=== PATIENT | male | born 1945 | race Caucasian/White ===

== ENCOUNTER 2018-10-12 05:42 | Inpatient (IN) | payer OTHER ==
[2018-10-12] MEDS ORDERED: TRANEXAMIC ACID 1,000 MG in NS 100 ML IV ONE (06:00)
[2018-10-12] MEDS ORDERED: GABAPENTIN 300 MG CAP PO ONE (06:01)
[2018-10-12] MEDS ORDERED: morphINE PF 0.2 MG in SYRINGE INTRATHECAL 1 SYR IT ONE (06:01)
[2018-10-12] MEDS ORDERED: fentaNYL 50 MCG in SYRINGE INTRATHECAL 1 SYR IT ONE (06:01)
[2018-10-12] MEDS ORDERED: ceFAZolin 2 GM/DEXTROSE 100 ML IV ONE (06:01)
[2018-10-12] MEDS ORDERED: ACETAMINOPHEN 500 MG TAB PO ONE (06:01)
[2018-10-12] MEDS ORDERED: LR 1,000 ML IV ONE (06:04)
[2018-10-12] MEDS ORDERED: CHLORHEXIDINE GLUC HIBICLENS 118 ML BTL TP ONE (06:40)
[2018-10-12] MEDS ORDERED: BUPIVACAINE 0.25% 30 ML SDV ONE (06:40)
[2018-10-12] MEDS ORDERED: THROMBIN (BOVINE) 20,000 UNIT VIAL TP ONE ×2 (06:40→08:30)
[2018-10-12] MEDS ORDERED: BUPIVACAINE/EPI 0.25% 30 ML SDV ONE (06:41)
[2018-10-12] MEDS ORDERED: BACITRACIN 50,000 UNITS/10 ML SYR IRR ONE (06:41)
[2018-10-12] MEDS ORDERED: CITRATE DEXTROSE SOLN 500 ML BAG ONE (06:41)
[2018-10-12 06:53] LABS: PLATELET COUNT 231 10^3/uL (150-400)
[2018-10-12] MEDS ORDERED: MIDAZOLAM 2 MG/2 ML VIAL IVP ONE (07:01)
--- NOTE | 2018-10-12 07:01 | PDANEPAE ---
ANE History of Present Illness L4-S1 Lum Adam posterior fusion for chronic back pain and cord compression ANE Past Medical History - Cardiovascular History Hx Hypertension: No Hx Arrhythmias: No Hx Chest Pain: No Hx Coronary Artery / Peripheral Vascular Disease: No Hx CHF / Valvular Disease: No Hx Palpitations: No - Pulmonary History Hx COPD: No Hx Asthma/Reactive Airway Disease: No Hx Recent Upper Respiratory Infection: No Hx Oxygen in Use at Home: No Hx Sleep Apnea: No Sleep Apnea Screening Result - Last Documented: Negative Pulmonary History Comment: uses allergy medications for seasonal allergies - Neurologic History Hx Cerebrovascular Accident: No Hx Seizures: No Hx Dementia: No Neurologic History Comment: hx of 2 back surgeries. left foot and calf numbness and tingling last 3 toes - Endocrine History Hx Diabetes: No - Renal History Hx Renal Disorders: Yes Renal History Comment: hx of prostatitis. BPH - Liver History Hx Hepatic Disorders: No - Neurological & Psychiatric Hx Hx Neurological and Psychiatric Disorders: No - Cancer History Hx Cancer: No - Congenital Disorder History Hx Congenital Disorders: No - GI History Hx Gastrointestinal Disorders: Yes Gastrointestinal History Comment: reflux- uses omeprazole. hx of colonoscopy - Other Health History Other Health History: bruises easily d/t nsaids - Chronic Pain History Chronic Pain: Yes (back pain) - Surgical History Prior Surgeries: R FOOT ACHILLES REPAIR 02/2018. left knee scope 10/22/2014. 2 back surgeries. hemmorhoidectomy. tonsillectomy and throat surgery. left acl 10 years ago ANE Review of Systems Review of Systems: - Exercise capacity METS (RN): 4 METS ANE Patient History - Allergies Allergies/Adverse Reactions: ciprofloxacin [From Cipro] Allergy (Verified 09/28/18 11:37) Achilles Tendon Tear levofloxacin Allergy (Verified 09/28/18 11:37) Achilles Tendon Tear - Home Medications Home Medications: Fluticasone Nasal [Flonase Nasal Kenney] 2 sprays NASAL DAILY 01/04/15 [Last Taken 01/18/15] Gabapentin [Neurontin 300 MG (*)] 300 mg PO TID 01/04/15 [Last Taken 01/18/15 20 :00] Multivitamins [Multivitamin (*)] 1 each PO DAILY 01/04/15 [Last Taken 01/12/15] Omeprazole [Prilosec] 40 mg PO Q2D 01/04/15 [Last Taken 01/19/15] HYDROcodone/APAP 10/325 [Potter 10/325 (*)] 1 tab PO Q6 PRN 09/28/18 [Last Taken Unknown] Metaxalone [Skelaxin 800 mg (*)] 800 mg PO TID 09/28/18 [Last Taken Unknown] Terazosin HCl [Hytrin 2 MG (*)] 2 mg PO DAILY 09/28/18 [Last Taken Unknown] Terazosin HCl [Hytrin 5 MG (*)] 5 mg PO HS 09/28/18 [Last Taken Unknown] celeCOXIB [Celebrex (*)] 200 mg PO DAILY 09/28/18 [Last Taken Unknown] - Smoking Hx Smoking Status: Former smoker - Family Anes Hx Family Hx Anesthesia Complications: none ANE Labs/Vital Signs - Labs Result Diagrams: 10/12/18 06:35 - Vital Signs Height: 175.26 cm Weight: 99.79 kg ANE Physical Exam - Airway Neck exam: FROM, increased neck circumference Mallampati Score: Class 3 Mouth exam: normal dental/mouth exam - Pulmonary Pulmonary: no respiratory distress, no rales or rhonchi - Cardiovascular Cardiovascular: regular rate and rhythym, no murmur, rub, or gallop - ASA Status ASA Status: II ANE Anesthesia Plan Anesthesia Plan: general endotracheal anesthesia Total IV Anesthesia: Yes
--- NOTE | 2018-10-12 07:03 | PDHPUP ---
History & Physical Update H&P update statement: This history and physical update is based on an assessment of the patient which was completed after admission or registration (within 24 hours), but prior to the surgery/procedure. H&P update: H&P reviewed & patient examined, no change in patient's condition since H&P completed
[2018-10-12] MEDS ORDERED: ONDANSETRON 4 MG/2 ML VIAL ONE (07:05)
[2018-10-12] MEDS ORDERED: DEXAMETHASONE 4 MG/ML VIAL ONE (07:05)
[2018-10-12] MEDS ORDERED: PHENYLEPHRINE 10 MG/ML SDV ONE (07:05)
[2018-10-12] MEDS ORDERED: PHENYLEPHRINE HCL 100 MCG/ML SYR ONE (07:05)
[2018-10-12] MEDS ORDERED: ROCURONIUM 50 MG/5 ML VIAL ONE (07:05)
[2018-10-12] MEDS ORDERED: LIDOCAINE 2% 100 MG/5 ML SYR ONE (07:05)
[2018-10-12] MEDS ORDERED: PROPOFOL 200 MG/20 ML VIAL ONE (07:06)
[2018-10-12] MEDS ORDERED: PROPOFOL/EMULSION 500 MG/50 ML BOTTLE IV ONE ×4 (07:06→09:09)
[2018-10-12] MEDS ORDERED: REMIFENTANIL HCL 1 MG VIAL ONE ×2 (07:06)
[2018-10-12] MEDS ORDERED: HYDROmorphONE/DILAUDID 2 MG/ML INJ ONE (10:16)
[2018-10-12] MEDS ORDERED: LR 500 ML IV PRN (10:19)
[2018-10-12] MEDS ORDERED: NALOXONE HCL 0.4 MG/ML INJ IVP PRN ×2 (10:19→10:39)
[2018-10-12] MEDS ORDERED: MEPERIDINE 25 MG/0.5 ML AMP IVP PRN (10:19)
[2018-10-12] MEDS ORDERED: DIAZEPAM 5 MG/ML 1 ML SYR IVP PRN (10:19)
[2018-10-12] MEDS ORDERED: PROMETHAZINE HCL 25 MG/ML INJ IVP PRN (10:19)
[2018-10-12] MEDS ORDERED: oxyCODONE IR 5 MG TAB PO PRN (10:19)
[2018-10-12] MEDS ORDERED: ONDANSETRON DISINTEGRATING 4 MG TAB PO PRN (10:39)
[2018-10-12] MEDS ORDERED: MAGNESIUM HYDROXIDE 30 ML UDCUP PO PRN (10:39)
[2018-10-12] MEDS ORDERED: BISACODYL 10 MG SUPP PR PRN (10:39)
[2018-10-12] MEDS ORDERED: diphenhydrAMINE 25 MG CAP PO PRN (10:39)
[2018-10-12] MEDS ORDERED: LACTULOSE 20 GM/30 ML UDCUP PO PRN (10:39)
--- NOTE | 2018-10-12 10:46 | SOAPPROG ---
SOAP Progress Note Assessment/Plan: Assessment: 73 yo M sp L4-S1 hardware removal and L3/4 TLIF Plan: stable ALISHA x 1 LSO brace when out of bed lovenox starts POD #1 please call with neuro changes 10/12/18 10:45 Subjective: + back pain, no leg pain Objective: Vital Signs Temp Pulse Resp BP Pulse Ox 37.1 C 87 13 127/85 H 92 10/12/18 06:09 10/12/18 06:09 10/12/18 06:09 10/12/18 06:09 10/12/18 06:09 Laboratory Results 10/12/18 06:35 somnolent PERRL, no facial droop NORBERTO x 4 + light touch ICD10 Worksheet Patient Problems: Problems Problem Status Onset S/P lumbar spinal fusion Acute
--- NOTE | 2018-10-12 10:59 | POSTANESTH ---
Post Anesthetic Evaluation Cardiovascular Status: Normal, Stable Respiratory Status: Normal, Stable Level of Consciousness/Mental Status: Can Participate in Eval, Mildly Sleepy, Arousable Pain Control: Adequate, Prn Tx Ordered Nausea/Vomiting Control: Adequate, Prn Tx Ordered Complications Possibly Related to Anesthesia: None Noted
[2018-10-12] MEDS ORDERED: HYDROmorphONE/DILAUDID 1 MG/ML INJ ONE (11:10)
[2018-10-12] MEDS ORDERED: fentaNYL 100 MCG/2 ML INJ ONE (11:10)
[2018-10-12] MEDS ORDERED: METHOCARBAMOL 750 MG TAB ONE (11:10)
[2018-10-12] MEDS: METHOCARBAMOL 750 MG TAB PO PRN ×2 (11:13→20:01)
[2018-10-12] MEDS: fentaNYL 100 MCG/2 ML INJ IVP PRN ×2 (11:16→11:24)
[2018-10-12] MEDS: HYDROmorphONE/DILAUDID 1 MG/ML INJ IVP PRN ×2 (11:16→11:26)
[2018-10-12] MEDS ORDERED: oxyCODONE IR 5 MG TAB ONE (12:00)
--- NOTE | 2018-10-12 12:33 | GOP ---
[f rep st] OPERATIVE REPORT DATE OF OPERATION: 10/12/2018 SURGEON: Willy Cramer MD NEUROSURGEON: Willy Cramer MD. CITY LETTER CARRIER: LASHAY Baptiste. ANESTHESIA: General endotracheal. 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 Prior L4 to S1 decompression and stabilization with inst rumentation. Intractable back and left greater than right lower extremity radicular pain. Intractab le neurogenic claudication. Failed conservative care. Obesity. 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 Prior L4 to S1 decompression and stabilization with ins trumentation. Intractable back and left greater than right lower extremity radicular pain. Intracta ble neurogenic claudication. Failed conservative care. Obesity. PROCEDURE PERFORMED: Removal of posterior segmental (pedicle screw and axial device) fixation from L 4 to S1 with exploration of spinal fusion and left-sided far lateral transpedicular decompression at the L3-4 level, with bilateral central canal and lateral recess decompression. L3-4 posterior nonseg mental (pedicle screw and axial device) fixation and posterolateral fusion, with local autograft, bon e morphogenic protein, and morselized allograft. L3-4 posterior/transforaminal lumbar interbody fusi on with 2 structural PEEK interbody spacers, local autograft, bone morphogenic protein, and morselize d allograft. Use of intraoperative microscopy, fluoroscopy, and computer volumetric stereotactic reggie igation with intraoperative neurophysiologic testing. Injection of intrathecal narcotic analgesics, and subcutaneous and intramuscular local anesthesia for postoperative pain control. FINDINGS: ESTIMATED BLOOD LOSS: 200 cc. INDICATIONS: The patient is a 73-year-old man with intractable low back pain, left greater than righ t lower extremity radicular and bilateral lower extremity neurogenic claudication symptoms, secondary to severe adjacent level degeneration at the L3-4 level, status post prior L4 to S1 decompression an d stabilization with instrumentation. He has severe central canal stenosis, and lateral recess and f oraminal impingement, and presents now for surgical decompression and stabilization at the L3-4 level ; removal of instrumentation from L4 through S1. DESCRIPTION OF PROCEDURE: After informed consent was obtained, the patient was taken to the operatin g room and placed in the prone position on the Richi table. The lumbosacral area was prepped and d raped in a sterile fashion. After fluoroscopic localization of the correct levels, the subcutaneous and intramuscular tissues were infiltrated with local anesthesia. A midline linear incision was then created from approximately L3 to S1. This was carried down to the fascial layer, which was incised using monopolar electrocautery, and carried in the subperiosteal plane along the spinous processes an d lamina bilaterally. The prior instrumentation was identified. The pedicle screws from L4 to S1 we re removed. The axial device at L4-5 was removed, as well. There was no reason remove the L5-S1 lev el axial device, and that remained in place. Following this, the extensive amount of scar tissue was carefully cleaned up, and a left-sided far lateral transpedicular decompression was performed with c omplete unroofing of the facet joint and neural foramen at L3 and L4. Bilateral lateral recess and c entral canal decompressions were performed by angling the instruments and microscope across the midli ne. Following adequate decompression, the Rackwise neuronavigational system was brought in. Using Sputnik8 volumetric stereotactic navigation, pedicle screws placed at L3 and L4 bilaterally. Intraoper ative neurophysiologic testing was utilized to verify good position of the screws along with biplanar fluoroscopy. Following this, rods were placed and secured under distraction, during which time a co mplete diskectomy was performed at the L3-4 level in preparation of the endplates and placement of 2 structural PEEK interbody spacers, local autograft, bone morphogenic protein, and morselized allograf t for an L3-4 posterior/transforaminal lumbar interbody fusion. The screw and chana system were then p laced in a slight amount of compression in order to facilitate bony union and to minimize the potenti al for posterior graft migration. An axial device was also placed at the L3-4 level in order to hope fully prevent a junctional kyphosis and hardware failure. The remaining lamina and facet joint on th e right were then extensively decorticated, and the residual local autograft along with bone morphoge nikkie protein and morselized allograft were placed out laterally for posterolateral fusion at the L3-4 level. 200 mcg of Duramorph along with 50 mcg of fentanyl were then injected intrathecally for posto perative pain control. The subcutaneous and intramuscular tissues were re-infiltrated with local ane sthesia. After re-verification of good positioning of the screws, chana, interspinous process clamp, a nd interbody spacers using biplanar fluoroscopy, the wound was closed in a layered fashion using inte rrupted Vicryl sutures, followed by Steri-Strips on the skin. COMPLICATIONS: None. DISPOSITION: The patient is currently in the process of being repositioned for extubation. /[id number]/MODL
--- NOTE | 2018-10-12 12:40 | PDMN ---
Medical Necessity Medical necessity: [facility] IP only surgery; cpt 77995 L3/4 TLIF
[2018-10-12] MEDS: oxyCODONE IR 5 MG TAB PO PRN ×3 (12:54→22:26)
[2018-10-12] MEDS ORDERED: TERAZOSIN HCL 2 MG CAP PO SCH (14:15)
[2018-10-12] MEDS: ceFAZolin 2 GM/DEXTROSE 100 ML IV SCH ×2 (14:42→22:26)
[2018-10-12] MEDS: POLYETHYLENE GLYCOL 3350 17 GM PKT PO SCH ×2 (14:49→22:26)
[2018-10-12] MEDS: TERAZOSIN HCL 5 MG CAP PO SCH (17:25)
[2018-10-12] MEDS: GABAPENTIN 300 MG CAP PO SCH ×2 (17:25→22:25)
[2018-10-12] MEDS: SENNOSIDES/DOCUSATE SODIUM TAB PO SCH (20:01)
[2018-10-12] MEDS: FAMOTIDINE 20 MG TAB PO SCH (20:02)
[2018-10-12] MEDS ORDERED: TERAZOSIN HCL 5 MG CAP PO SCH (21:00)
[2018-10-13] MEDS: METHOCARBAMOL 750 MG TAB PO PRN ×3 (02:26→23:24)
[2018-10-13] MEDS: oxyCODONE IR 5 MG TAB PO PRN ×4 (02:26→23:24)
[2018-10-13 04:54] LABS: PLATELET COUNT 195 10^3/uL (150-400)
--- NOTE | 2018-10-13 07:21 | NEUSURGPN ---
Date of Surgery: 10/12/18 Post Op Day: 1 Assessment/Plan: Assessment: 73 yo M sp L4-S1 hardware removal and L3/4 TLIF POD#1 Plan: Post op xrays pending ALISHA x 1, 330ml output. Will leave in for now LSO brace when out of bed lovenox starts POD #1 Remove sutton late am following am dose of Hytrin please call with neuro changes Discussed patient with Dr Toro Subjective: Doing well, legs feel better Objective: AxOx4 MAEx4 5/5 BLE, BUE Sensation intact to light touch BLE Incision/dressing CDI ALISHA patent Neuro Check Frequency: per routine Urinary Catheter in Place: Yes Urinary Catheter Indication: Acute Urinary Retention Catheter Insertion Date: 10/12/18 - Physician Discussed Patient with DrPeri: Shoaib Neurosurgery Physical Exam - Vitals, I&O, Labs I and O 10/12/18 10/13/18 10/14/18 05:59 05:59 05:59 Intake Total 4260 100 Output Total 5180 Balance -920 100 Weight 99.79 kg Intake: Oral (ml) 2460 IV Intake (ml) 1700 IV Infused (ml) 100 100 ceFAZolin 2 GM/DEXTROSE 100 100 100 ml @ 200 mls/hr IV Q8HRS [facility] Rx#:[id number] Output: Urine (ml) 4350 Catheter 4050 Urinal 300 Estimated Blood Loss (ml) 500 ALISHA Drain Output (ml) 330 Back Richi Wyatt 330 Other: Intake Quantity Yes Sufficient Bladder Scan Volume (ml) Urinal 730 Vital Signs Temp Pulse Resp BP Pulse Ox 36.8 C 79 16 129/64 H 92 10/13/18 07:17 10/13/18 07:17 10/13/18 07:17 10/13/18 07:17 10/13/18 07:17 Laboratory Results 10/13/18 04:23 10/13/18 04:23 ICD10 Worksheet Patient Problems: Problems Problem Status Onset S/P lumbar spinal fusion Acute
[2018-10-13] MEDS: ENOXAPARIN 40 MG/0.4 ML SYR SC SCH (07:35)
[2018-10-13] MEDS: TERAZOSIN HCL 2 MG CAP PO SCH (07:36)
[2018-10-13] MEDS: SENNOSIDES/DOCUSATE SODIUM TAB PO SCH ×2 (07:37→20:09)
[2018-10-13] MEDS: FAMOTIDINE 20 MG TAB PO SCH ×2 (07:37→20:09)
[2018-10-13] MEDS: GABAPENTIN 300 MG CAP PO SCH ×3 (07:38→21:28)
[2018-10-13] MEDS: POLYETHYLENE GLYCOL 3350 17 GM PKT PO SCH ×3 (07:40→20:09)
[2018-10-13] MEDS ORDERED: TERAZOSIN HCL 2 MG CAP PO SCH ×2 (09:00)
[2018-10-13] MEDS: FLUTICASONE NASAL 120 SPRAYS/16 GM MDI EACHNARE SCH (11:50)
--- NOTE | 2018-10-13 15:13 | ASMTCMCOM ---
CM Note CM Note Notes: Pt had planned surgery, resides with spouse. OT rec home, PT rec outpatient. Pt has DME. Anticipate pt will d/c when medically stable. No CM d/c needs identified. CM available for changes/needs. D/c plan: Independent Date Signed: 10/13/2018 03:13 PM Electronically Signed By:PILAR Flowers
[2018-10-13] MEDS: ONDANSETRON 4 MG/2 ML VIAL IVP PRN (15:21)
[2018-10-13] MEDS ORDERED: PROMETHAZINE HCL 25 MG/ML INJ ONE (16:50)
[2018-10-13] MEDS: PROMETHAZINE HCL 25 MG/ML INJ IVP PRN ×2 (17:05→20:10)
[2018-10-13] MEDS: TERAZOSIN HCL 5 MG CAP PO SCH ×2 (18:04→20:09)
[2018-10-13] MEDS ORDERED: MAGNESIUM CITRATE 300 ML BOTTLE PO PRN (22:23)
[2018-10-13] MEDS: METOCLOPRAMIDE 10 MG/2 ML VIAL IVP PRN (23:08)
[2018-10-14] MEDS: PROMETHAZINE HCL 25 MG/ML INJ IVP PRN (02:56)
[2018-10-14] MEDS: oxyCODONE IR 5 MG TAB PO PRN ×5 (05:08→22:19)
[2018-10-14] MEDS: METOCLOPRAMIDE 10 MG/2 ML VIAL IVP PRN (05:09)
--- NOTE | 2018-10-14 07:53 | SOAPPROG ---
SOAP Progress Note Assessment/Plan: Assessment: 73 yo M POD #2 L4-S1 hardware removal and L3/4 TLIF Plan: neuro: stable ? Ileus: getting KUB, consider relifan or ng tube if needed PT/OT urinary retention resolved, able to void w/o sutton ALISHA x 1 LSO brace when out of bed lovenox/scd/eileen for dvt prophylaxis post op x-rays look good please call with neuro changes discussed with DR Toro 10/12/18 10:45 10/14/18 07:51 Subjective: + back pain, no leg pain, no weakness, + nausea with emesis, no flatus Objective: Vital Signs Temp Pulse Resp BP Pulse Ox 37.6 C 82 16 141/64 H 90 L 10/13/18 23:44 10/13/18 23:44 10/13/18 23:44 10/13/18 23:44 10/13/18 23:44 Laboratory Results 10/13/18 04:23 10/13/18 04:23 10/13/18 10/14/18 10/15/18 05:59 05:59 05:59 Intake Total 4260 300 Output Total 5181 425 Balance -920 -315 AAOx4, +FC PERRL, EOMI, no facial droop 5/5 + light touch C/D/I ICD10 Worksheet Patient Problems: Problems Problem Status Onset S/P lumbar spinal fusion Acute
[2018-10-14] MEDS ORDERED: METHYLNALTREXONE BROMIDE 12 MG/0.6 ML INJ SC ONE (08:51)
[2018-10-14] MEDS: ONDANSETRON 4 MG/2 ML VIAL IVP PRN (08:51)
[2018-10-14] MEDS: METHOCARBAMOL 750 MG TAB PO PRN ×2 (08:54→14:54)
[2018-10-14] MEDS: PANTOPRAZOLE SODIUM 40 MG TAB PO SCH (08:54)
[2018-10-14] MEDS: FAMOTIDINE 20 MG TAB PO SCH ×2 (08:54→22:17)
[2018-10-14] MEDS: GABAPENTIN 300 MG CAP PO SCH ×3 (08:54→22:17)
[2018-10-14] MEDS: POLYETHYLENE GLYCOL 3350 17 GM PKT PO SCH ×3 (08:55→22:18)
[2018-10-14] MEDS: ENOXAPARIN 40 MG/0.4 ML SYR SC SCH (08:55)
[2018-10-14] MEDS: SENNOSIDES/DOCUSATE SODIUM TAB PO SCH ×2 (08:55→22:19)
[2018-10-14] MEDS: TERAZOSIN HCL 2 MG CAP PO SCH (08:55)
[2018-10-14] MEDS: FLUTICASONE NASAL 120 SPRAYS/16 GM MDI EACHNARE SCH (10:25)
[2018-10-14] MEDS: NS W/ 20 KCl/L 1,000 ML IV SCH (12:45)
[2018-10-15] MEDS: NS W/ 20 KCl/L 1,000 ML IV SCH (00:29)
--- NOTE | 2018-10-15 08:10 | NEUSURGPN ---
Date of Surgery: 10/12/18 Post Op Day: 3 Assessment/Plan: Assessment: 73 yo M POD #3 L4-S1 hardware removal and L3/4 TLIF Plan: neuro: stable Ileus: patient has NGT, patient has 3 BM's since placement. Will trial clamp of NGT today with liquid diet PT/OT ALISHA x 1-60ml output LSO brace when out of bed lovenox/scd/eileen for dvt prophylaxis post op x-rays look good please call with neuro changes discussed with DR Toro Subjective: Feeling better, abdomen non tender Objective: AxOx4 MAEx4 5/5 BLE Abdomen soft/non tender Dressing/Incision CDI ALISHA patent Neuro Check Frequency: per routine Urinary Catheter in Place: No Catheter Insertion Date: 10/12/18 - Physician Discussed Patient with : Shoaib Neurosurgery Physical Exam - Vitals, I&O, Labs I and O 10/14/18 10/15/18 10/16/18 05:59 05:59 05:59 Intake Total 300 1880 Output Total 615 560 Balance -315 1320 Weight 99.79 kg Intake: Oral (ml) 200 680 IV Infused (ml) 100 1200 NS W/ 20 KCl/L 1,000 ml @ 1200 100 mls/hr IV CONT [facility] Rx#:[id number] ceFAZolin 2 GM/DEXTROSE 100 100 ml @ 200 mls/hr IV Q8HRS [facility] Rx#:[id number] Output: Urine (ml) 475 300 Catheter 400 Urinal 75 300 NG Tube Output (ml) 200 Large Bore (>12 Malawian) 200 Non-weighted Right Naris Stomach 18 Mal[place]ian ALISHA Drain Output (ml) 140 60 Back Richi Wyatt 140 60 Other: Intake Quantity Yes Yes Sufficient Number of Voids Catheter 1 Urinal 1 1 Post Void Residual Scan Volume (ml) Urinal 179 Vital Signs Temp Pulse Resp BP Pulse Ox 37.0 C 63 16 126/66 H 95 10/14/18 23:13 10/14/18 23:13 10/14/18 23:13 10/14/18 23:13 10/14/18 23:13 Laboratory Results 10/13/18 04:23 10/13/18 04:23 ICD10 Worksheet Patient Problems: Problems Problem Status Onset S/P lumbar spinal fusion Acute
[2018-10-15] MEDS: ENOXAPARIN 40 MG/0.4 ML SYR SC SCH (09:00)
[2018-10-15] MEDS: TERAZOSIN HCL 2 MG CAP PO SCH (09:00)
[2018-10-15] MEDS: GABAPENTIN 300 MG CAP PO SCH ×4 (09:00→20:54)
[2018-10-15] MEDS: METHOCARBAMOL 750 MG TAB PO PRN ×4 (09:01→23:09)
[2018-10-15] MEDS: FAMOTIDINE 20 MG TAB PO SCH ×2 (09:02→20:54)
[2018-10-15] MEDS: FLUTICASONE NASAL 120 SPRAYS/16 GM MDI EACHNARE SCH (09:03)
[2018-10-15] MEDS: POLYETHYLENE GLYCOL 3350 17 GM PKT PO SCH ×3 (09:16→20:54)
[2018-10-15] MEDS: SENNOSIDES/DOCUSATE SODIUM TAB PO SCH ×2 (09:16→20:55)
[2018-10-15] MEDS: oxyCODONE IR 5 MG TAB PO PRN ×5 (09:19→23:09)
[2018-10-15] MEDS: ACETAMINOPHEN 500 MG TAB PO SCH ×2 (12:03→18:19)
[2018-10-15] MEDS: TERAZOSIN HCL 5 MG CAP PO SCH (18:19)
[2018-10-15] MEDS: PHENOL 177 ML THROAT SPRAY PO PRN ×3 (19:00→23:08)
[2018-10-15] MEDS: CEPACOL LOZENGE PO PRN ×2 (21:07→23:08)
[2018-10-16] MEDS: ACETAMINOPHEN 500 MG TAB PO SCH ×2 (02:44→12:24)
[2018-10-16] MEDS: oxyCODONE IR 5 MG TAB PO PRN ×4 (03:08→15:12)
[2018-10-16] MEDS: CEPACOL LOZENGE PO PRN ×2 (03:14→10:00)
[2018-10-16] MEDS: PHENOL 177 ML THROAT SPRAY PO PRN (03:15)
[2018-10-16 07:55] VITALS: BP 161/62
[2018-10-16] MEDS: METHOCARBAMOL 750 MG TAB PO PRN ×3 (08:00→15:13)
[2018-10-16] MEDS: FAMOTIDINE 20 MG TAB PO SCH (08:06)
[2018-10-16] MEDS: PANTOPRAZOLE SODIUM 40 MG TAB PO SCH (08:06)
[2018-10-16] MEDS: ENOXAPARIN 40 MG/0.4 ML SYR SC SCH (08:07)
[2018-10-16] MEDS: GABAPENTIN 300 MG CAP PO SCH ×2 (08:07→15:12)
[2018-10-16] MEDS: TERAZOSIN HCL 2 MG CAP PO SCH (08:07)
[2018-10-16] MEDS: POLYETHYLENE GLYCOL 3350 17 GM PKT PO SCH (08:12)
[2018-10-16] MEDS: SENNOSIDES/DOCUSATE SODIUM TAB PO SCH (08:12)
[2018-10-16] MEDS: FLUTICASONE NASAL 120 SPRAYS/16 GM MDI EACHNARE SCH (08:13)
--- NOTE | 2018-10-16 08:17 | SOAPPROG ---
SOAP Progress Note Assessment/Plan: Assessment: Date of Surgery: 10/12/18 Post Op Day: 4 Assessment/Plan: Assessment: 73 yo M POD #4 L4-S1 hardware removal and L3/4 TLIF post op x-rays look good Plan: -DC NGT. He tolerated dinner last night and had BM PT/OT ALISHA x 1-50ml output LSO brace when out of bed lovenox/scd/eileen for dvt prophylaxis please call with neuro changes Subjective: Feeling better, abdomen non tender . Has sore throat from NG tube Objective: AxOx4 MAEx4 5/5 BLE Abdomen soft/non tender, + bowel sounds per RN Dressing/Incision CDI ALISHA patent Neuro Check Frequency: per routine Urinary Catheter in Place: No Catheter Insertion Date: 10/12/18 Objective: Vital Signs Temp Pulse Resp BP Pulse Ox 36.7 C 70 16 161/62 H 94 10/16/18 07:43 10/15/18 22:57 10/15/18 22:57 10/16/18 07:43 10/15/18 22:57 Laboratory Results 10/13/18 04:23 10/13/18 04:23 10/15/18 10/16/18 10/17/18 05:59 05:59 05:59 Intake Total 1880 200 Output Total 560 1250 Balance 1320 -1050 ICD10 Worksheet Patient Problems: Problems Problem Status Onset S/P lumbar spinal fusion Acute
--- NOTE | 2018-10-16 15:48 | ASDISCHSUM ---
Discharge Information Plan Status:Home with Home Health Medically Cleared to Leave: Discharge Date:10/16/2018 03:46 PM CM D/C Disposition:Home, Routine, Self-Care ADT D/C Disposition:Home, Routine, Self-Care Projected Discharge Date:10/16/2018 03:46 PM Transportation at D/C:Family Discharge Delay Reason: Follow-Up Date:10/16/2018 03:46 PM Discharge Slot: Final Diagnosis:s/p L4-S1 hardware removal and L3/f TLIF Placement Information Patient Contact Information Contact Name:MARIO Relationship:Other Address: Home Phone: City:[facility] Phone: [facility]/[employer] Code:[place] Email: Financial Information Financial Class:Medicare Primary Plan Desc:MEDICARE INPATIENT Primary Plan Number:[id number] Secondary Plan Desc:[place] Secondary Plan Number:[id number] Assessment Information [facility] CM Progress Note CM Note CM Note Notes: Pt had planned surgery, resides with spouse. OT rec home, PT rec outpatient. Pt has DME. Anticipate pt will d/c when medically stable. No CM d/c needs identified. CM available for changes/needs. D/c plan: Independent Date Signed: 10/13/2018 03:13 PM Electronically Signed By:PILAR Flowers Intervention Information
--- NOTE | 2018-10-16 15:52 | ASMTDCNOTE ---
Case Management Discharge Discharge Order Complete? Answers: Yes Patient to Obtain Answers: via Family Medications Transportation Arranged Answers: Family/Friends Family Notified Answers: Yes Notes: present in room. Discharge Comments Notes: Patient to discharge today, CM met with patient and family who will be transporting patient home and supporting recommended follow up. CM delivered IM, patient signed for receipt. CM available to follow if any CM/Discharge needs arise. Date Signed: 10/16/2018 03:52 PM Electronically Signed By:Rika Arroyo
--- NOTE | 2018-10-21 10:26 | GDS ---
[f rep st] DISCHARGE SUMMARY ADMISSION DIAGNOSIS: L4-3 for lumbar degenerative joint disease and stenosis. DISCHARGE DIAGNOSES: 1. Status post hardware removal with L3-4 transforaminal lumbar interbody fusion. 2. Postoperative ileus. HISTORY/PHYSICAL: Please see admission history and physical. HOSPITAL COURSE: Patient is a 73-year-old male who underwent a previous L4-S1 instrumentation and fu paulo. He was taken to the operating room on 10/12/2018, where he underwent hardware removal, followe d by an L3-4 transforaminal lumbar interbody fusion. There were no intraoperative complications and he was admitted to the floor for observation. On the floor, he made good progress with physical therapy and occupational therapy, but developed per sistent postoperative nausea and vomiting. He was found to have an ileus and an NG tube was placed. His ileus resolved and he had several normal bowel movements. His pain was controlled with p.o. sukhwinder n medications and he was ambulating on his own. He was discharged home in stable condition on 2018. The patient was discharged with lumbar fusion instructions and recommended he return for neuro surgical followup appointment in 10 to 14 days. /[id number]/MODL
== END 2018-10-16 15:46 | disposition home or self-care (01) | DRG 454 ==
LOC: F3N 05:42 → MERGE 12:45
PROVIDERS: ADMIT Neurological Surgery; ATTEND Neurological Surgery
PROC: 0QP004Z Removal of Internal Fixation Device from Lumbar Vertebra, Open Approach (ICD-10-PCS; principal; 2018-10-12 07:15)
PROC: 01NB0ZZ Release Lumbar Nerve, Open Approach (ICD-10-PCS; principal; 2018-10-12 07:15)
PROC: 3E0U0GB Introduction of Recombinant Bone Morphogenetic Protein into Joints, Open Approach (ICD-10-PCS; principal; 2018-10-12 07:15)
PROC: 0SG00AJ Fusion of Lumbar Vertebral Joint with Interbody Fusion Device, Posterior Approach, Anterior Column, Open Approach (ICD-10-PCS; principal; 2018-10-12 07:15)
PROC: 0SG0071 Fusion of Lumbar Vertebral Joint with Autologous Tissue Substitute, Posterior Approach, Posterior Column, Open Approach (ICD-10-PCS; principal; 2018-10-12 07:15)
DX: M47.26 Other spondylosis with radiculopathy, lumbar region (principal); M51.17 Intervertebral disc disorders with radiculopathy, lumbosacral region; R33.9 Retention of urine, unspecified; K56.7 Ileus, unspecified; E66.9 Obesity, unspecified; Z68.32 Body mass index [BMI] 32.0-32.9, adult; Z98.1 Arthrodesis status; Z96.652 Presence of left artificial knee joint
CPT/HCPCS: 97116-GP; 97161-GP; 97165-GO; 97530-GP; 97535-GO; C1713; C1762; J0690; J1100; J1170; J1650; J2001; J2212; J2250; J2270; J2274; J2370; J2405; J2550; J2704; J2765; J3010